=== PATIENT | female | born 1990 | race Hispanic/Latino ===

== ENCOUNTER 2025-02-01 12:20 | Emergency (ER) | payer SELFPAY ==
--- NOTE | 2025-02-01 13:34 | ER ---
Nurse's Notes [facility] Name: Libertad Feliz Age: 34 yrs Sex: Female : 1990 Arrival Date: 02/01/2025 Time: 12:20 Bed 10 Private MD: Diagnosis: Encounter for removal of sutures Presentation: 02/01 12:46 Chief complaint: Patient states: STAPLE REMOVAL AFTER ECTOPIC LAST TUESDAY. bp Coronavirus screen: At this time, the client does not indicate any symptoms associated with coronavirus-19. Ebola Screen: No symptoms or risks identified at this time. Initial Sepsis Screen: Does the patient meet any 2 criteria? No. Patient's initial sepsis screen is negative. Does the patient have a suspected source of infection? No. Patient's initial sepsis screen is negative. Risk Assessment: Do you want to hurt yourself or someone else? Patient reports no desire to harm self or others. Onset of symptoms is unknown. 12:46 Method Of Arrival: Ambulatory bp 12:46 Acuity: GIOVANNI 5 bp Triage Assessment: 12:47 General: Appears in no apparent distress. Behavior is calm, cooperative, appropriate bp for age. Pain: Complains of pain in pelvis. Historical: - Allergies: 12:47 No Known Allergies; bp - PMHx: 12:47 Anemia; ectopic ; bp - PSHx: 12:47 removal of one fallopian tube; bp - Immunization history:: Adult Immunizations up to date. - Infectious Disease History:: Denies. - Social history:: Smoking status: Patient denies any tobacco usage or history of. Screenin:20 [facility] ED Fall Risk Assessment (Adult) History of falling in the last 3 months, aa5 including since admission No falls in past 3 months (0 pts) Confusion or Disorientation No (0 pts) Intoxicated or Sedated No (0 pts) Impaired Gait No (0 pts) Mobility Assist Device Used No (0 pt) Altered Elimination No (0 pt) Score/Fall Risk Level 0 - 2 = Low Risk Oriented to surroundings, Maintained a safe environment, Educated pt \T\ family on fall prevention, incl call for assistance when getting out of bed, Assessed \T\ reinforced patient's understanding of fall precautions. Abuse screen: Denies threats or abuse. Nutritional screening: No deficits noted. Tuberculosis screening: No symptoms or risk factors identified. Assessment: 13:20 General: Appears comfortable, Behavior is calm, cooperative. Pain: Denies pain. Neuro: aa5 Level of Consciousness is awake, alert, obeys commands, Oriented to person, place, time, situation. Cardiovascular: Patient's skin is warm and dry. Respiratory: Airway is patent Respiratory effort is even, unlabored, Respiratory pattern is regular, symmetrical. GI: Reports jordan to lower abdomen and need for removal. : No signs and/or symptoms were reported regarding the genitourinary system. EENT: No signs and/or symptoms were reported regarding the EENT system. Derm: Skin is pink, warm \T\ dry. Musculoskeletal: Range of motion: intact in all extremities. 13:35 Reassessment: Patient is alert, oriented x 3, equal unlabored respirations, skin aa5 warm/dry/pink. Vital Signs: 12:46 BP 134 / 85; Pulse 91; Resp 16; Temp 98; Pulse Ox 100% ; bp ED Course: 12:24 Patient arrived in ED. im 12:27 [facility] 12:27 Chato Andrade MD is Attending Physician. dr5 12:47 Triage completed. bp 12:47 Arm band placed on. bp 13:19 Annamarie Palmer, RN is Primary Nurse. aa5 13:20 Patient has correct armband on for positive identification. aa5 13:35 No provider procedures requiring assistance completed. Patient did not have IV access aa5 during this emergency room visit. Administered Medications: No medications were administered Medication: 13:35 VIS not applicable for this client. aa5 Outcome: 13:34 Discharge ordered by . dr5 13:35 Discharged to home ambulatory, aa5 13:35 Condition: good 13:35 Discharge instructions given to patient, Instructed on discharge instructions, follow up and referral plans. Demonstrated understanding of instructions, follow-up care, 13:36 Patient left the ED. aa5 Signatures: Annamarie Palmer, RN RN aa5 Flako Calderon, CIRO RN Joanna Torrez im Justen Guallpa FNP-[place]IST-Cdr5 Corrections: (The following items were deleted from the chart) 13:55 13:54 Patient left the ED. aa5 aa5
--- NOTE | 2025-02-01 13:35 | EDPHYS ---
Physician Documentation [facility] Name: Libertad Feliz Age: 34 yrs Sex: Female : 1990 Arrival Date: 02/01/2025 Time: 12:20 Bed 10 Private MD: ED Physician Chato Andrade HPI: 02/01 14:30 This 34 yrs old Female presents to ER via Ambulatory with complaints of Staple dr5 Removal. 14:30 The patient has savannah on the suprapubic area. Patient is a 34-year-old female who dr5 previously had ectopic and had surgery completed with savannah for wound closure. Patient reports that it is time for her savannah to come out. Patient denies discharge from wound, fever, tenderness to palpation.. Historical: - Allergies: 12:47 No Known Allergies; bp - PMHx: 12:47 Anemia; ectopic ; bp - PSHx: 12:47 removal of one fallopian tube; bp - Immunization history:: Adult Immunizations up to date. - Infectious Disease History:: Denies. - Social history:: Smoking status: Patient denies any tobacco usage or history of. ROS: 14:30 Constitutional: as per hpi dr5 Exam: 14:30 Constitutional: This is a well developed, well nourished patient who is awake, alert, dr5 and in no acute distress. Head/Face: Normocephalic, atraumatic. Eyes: Pupils equal round and reactive to light, extra-ocular motions intact. Lids and lashes normal. Conjunctiva and sclera are non-icteric and not injected. Cornea within normal limits. Periorbital areas with no swelling, redness, or edema. Neck: Trachea midline, no thyromegaly or masses palpated, and no cervical lymphadenopathy. Supple, full range of motion without nuchal rigidity, or vertebral point tenderness. No Meningismus. Chest/axilla: Normal chest wall appearance and motion. Nontender with no deformity. No lesions are appreciated. Cardiovascular: Regular rate and rhythm with a normal S1 and S2. Normal PMI, no JVD. No pulse deficits. Respiratory: Lungs have equal breath sounds bilaterally, clear to auscultation. No rales, rhonchi or wheezes noted. No increased work of breathing, no retractions or nasal flaring. Back: No spinal tenderness. No costovertebral tenderness. Full range of motion. Skin: Warm, dry with normal turgor. Normal color with no rashes, no lesions, and no evidence of cellulitis. Well healing wound noted to suprapubic area with 9 savannah. MS/ Extremity: Pulses equal, no cyanosis. Neurovascular intact. Full, normal range of motion. Neuro: Awake and alert, GCS 15, oriented to person, place, time, and situation. Cranial nerves II-XII grossly intact. Motor strength 5/5 in all extremities. Sensory grossly intact. Cerebellar exam normal. Normal gait. Vital Signs: 12:46 BP 134 / 85; Pulse 91; Resp 16; Temp 98; Pulse Ox 100% ; bp Procedures: 13:34 Suture/Staple removal: Removed 9 savannah, from suprapubic area, site appears well dr5 healed, dressed with gauze bandage, Patient tolerated well. MDM: 12:27 Medical Screening Exam initiated dr5 14:30 Data reviewed: vital signs, nurses notes. Consideration of Admission/Observation dr5 Escalation of care including admission/observation considered. Consider escalation found to have signs of infection from surgery site.. Administered Medications: No medications were administered Disposition: 14:49 Co-signature as Attending Physician, Chato Andrade MD I agree with the assessment and jr plan of care. Disposition Summary: 02/01/25 13:34 Discharge Ordered Notes: Location: Home dr5 Condition: Stable dr5 Diagnosis - Encounter for removal of sutures dr5 Followup: dr5 - With: Emergency Department - When: As needed - Reason: Worsening of condition Followup: dr5 - With: Private Physician - When: 1 - 2 days - Reason: Recheck today's complaints, Continuance of care, Re-evaluation by your physician Discharge Instructions: - Discharge Summary Sheet dr5 - Sutures, Savannah, or Adhesive Wound Closure dr5 Forms: - Medication Reconciliation Form dr5 - Patient Portal Instructions dr5 - Leadership Thank You Letter dr5 Signatures: Flako Calderon RN RN bp Rosillo, Jose, MD MD [id number] Justen Guallpa FNP-C SHARON-Cdr5
[2025-02-01 14:06] VITALS: BP 134/85; TEMP 98; O2SAT 100
== END 2025-02-01 13:54 | disposition home or self-care (01) ==
LOC: ER 12:20
DX: Z48.02 Encounter for removal of sutures (principal)
CPT/HCPCS: 99282